=== PATIENT | female | born 2000 | race Caucasian/White ===

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

== ENCOUNTER 2023-06-20 07:24 | Emergency (ER) | payer MEDICAID ==
[~2023-06-20] VITALS: Ht 149.9 cm; Wt 43.2 kg
[~2023-06-20 07:24] MED LIST changes: +PROAIR HFA0.09 MG/AC IH; +SINGULAIR 110 MG/TAB PO; +TESSALON P100 MG/CAP PO; +ZYRTEC 10MG10 MG PO
[2023-06-20 07:36] VITALS: TEMP 98.2
[2023-06-20] MEDS ORDERED: Ondansetron 4 MG/2 ML VIAL IV ONE (09:00)
[2023-06-20] MEDS ORDERED: Ketorolac 15 MG/ML VIAL IV ONE (09:00)
[2023-06-20 09:19] LABS: BASO % 0.5 % (0.0-2.0); EOS # 0.2 K/mm3 (0.0-0.7); EOS % 3.9 % (0.0-4.0); GRAN # 2.1 K/mm3 (1.4-6.5); GRAN % 54.1 % (42.2-75.2); HEMATOCRIT 37.9 % (37.0-47.0); HEMOGLOBIN 12.3 g/dl (12.5-16.0); LYMPH # 1.4 K/mm3 (1.2-3.4); LYMPH % 35.2 % (20.0-51.0); MEAN CELL VOLUME 92 fl (80.0-100.0); MEAN CORPUSCULAR HEMOGLOBIN 30 pg (27-31); MEAN CORPUSCULAR HGB CONC 33 g/dl (33.0-37.0); MEAN PLATELET VOLUME 10.7 fl (7.4-10.4); MONO # 0.2 K/mm3 (0.1-0.6); PLATELET COUNT 192 K/mm3 (130-400); RED BLOOD COUNT 4.14 M/mm3 (4.10-5.30); REDCELL DISTRIBUTION WIDTH-CV 12.2 % (11.5-14.5)
[2023-06-20 09:20] LABS: COLLECTION METHOD CLEAN CATCH
[2023-06-20 09:35] LABS: URINE APPEARANCE CLEAR (CLEAR/HAZY); URINE BLOOD NEGATIVE (NEGATIVE); URINE COLOR YELLOW (YELLOW); URINE GLUCOSE NEGATIVE (NEGATIVE); URINE KETONE 2+ (NEGATIVE); URINE NITRATE NEGATIVE (NEGATIVE); URINE PROTEIN(semi-quant) TRACE (NEGATIVE)
[2023-06-20 09:38] LABS: ALBUMIN 3.7 g/dL (3.5-5.0); BILIRUBIN,TOTAL 0.7 mg/dL (0.2-1.2); CALCIUM 9.1 mg/dL (8.4-10.2); CREATININE, serum 0.73 mg/dL (0.57-1.11); POTASSIUM 3.7 mEq/L (3.5-4.5); TOTAL PROTEIN 6.9 g/dl (6.2-8.1)
[2023-06-20] MEDS ORDERED: Iohexol 300 - 100 ML VIAL IV ONE (10:36)
[2023-06-20] MEDS ORDERED: NS 100 ML IV SCH (10:37)
[2023-06-20 11:43] VITALS: BP 112/70; PULSE 76
== END 2023-06-20 11:44 | disposition home or self-care (01) ==
LOC: COL.ER 07:24
PROVIDERS: Emergency Medicine
DX: N39.0 Urinary tract infection, site not specified (principal); N20.0 Calculus of kidney
CPT/HCPCS: J1885; J2405; Q9967

== ENCOUNTER 2023-07-30 21:26 | Emergency (ER) | payer SELFPAY ==
[~2023-07-30] VITALS: Ht 149.9 cm; Wt 43.2 kg
[2023-07-30 21:38] VITALS: TEMP 98.3
[2023-07-30 21:49] LABS: COLLECTION METHOD CLEAN CATCH
[2023-07-30 21:57] LABS: URINE APPEARANCE TURBID (CLEAR/HAZY); URINE BLOOD 2+ (NEGATIVE); URINE COLOR RED (YELLOW); URINE GLUCOSE NEGATIVE (NEGATIVE); URINE KETONE 1+ (NEGATIVE); URINE NITRATE POSITIVE (NEGATIVE); URINE PROTEIN(semi-quant) 2+ (NEGATIVE); URINE UROBILINOGEN 0.2 E.U/dL (0.2-1.0)
[2023-07-30 22:06] LABS: URINE RBC >50 /hpf (0-2); URINE WBC >50 /hpf (0-2)
[2023-07-30 22:07] LABS: URINE BACTERIA MODERATE /hpf (NONE SEEN)
[2023-07-30] MEDS ORDERED: Ondansetron 4 MG/2 ML VIAL IV ONE (22:15)
[2023-07-30] MEDS ORDERED: Morphine 4 MG/ML VIAL IV ONE ×2 (22:15→23:45)
[2023-07-30] MEDS ORDERED: LR 1,000 ML IV ONE (22:15)
[2023-07-30] MEDS ORDERED: cefTRIAXone 1 G in Water For Injection,Sterile 10 ML IV ONE (22:15)
[2023-07-30 22:36] LABS: BASO % 0.3 % (0.0-2.0); EOS # 0.1 K/mm3 (0.0-0.7); GRAN # 9.8 K/mm3 (1.4-6.5); GRAN % 83.2 % (42.2-75.2); HEMATOCRIT 40.6 % (37.0-47.0); HEMOGLOBIN 13.4 g/dl (12.5-16.0); LYMPH # 1.2 K/mm3 (1.2-3.4); LYMPH % 10.4 % (20.0-51.0); MEAN CELL VOLUME 91 fl (80.0-100.0); MEAN CORPUSCULAR HEMOGLOBIN 30 pg (27-31); MEAN CORPUSCULAR HGB CONC 33 g/dl (33.0-37.0); MEAN PLATELET VOLUME 11.2 fl (7.4-10.4); MONO # 0.6 K/mm3 (0.1-0.6); MONO % 4.8 % (1.7-9.3); PLATELET COUNT 215 K/mm3 (130-400); RED BLOOD COUNT 4.47 M/mm3 (4.10-5.30); REDCELL DISTRIBUTION WIDTH-CV 11.9 % (11.5-14.5)
[2023-07-30] MEDS ORDERED: CEFTIN 250250 MG/TAB PO (23:10)
[2023-07-30 23:38] LABS: ALANINE AMINOTRANSFERASE 7 U/L (0-55); ALBUMIN 3.5 g/dL (3.5-5.0); ALKALINE PHOSPHATASE 56 U/L (40-150); ANION GAP 10 mmol/L (7-16); AST,SGOT 15 U/L (5-34); BILIRUBIN,TOTAL 0.5 mg/dL (0.2-1.2); CALCIUM 9.5 mg/dL (8.4-10.2); CHLORIDE 106 mEq/L (98-107); CREATININE, serum 0.74 mg/dL (0.57-1.11); GLUCOSE 83 mg/dL (70-99); LIPASE 8 U/L (8-78); POTASSIUM 3.7 mEq/L (3.5-4.5); SODIUM 139 mEq/L (136-145); TOTAL PROTEIN 6.2 g/dl (6.2-8.1)
[2023-07-30 23:42] LABS: C-REACTIVE PROTEIN < 0.02 mg/dL (0.00-0.50)
[2023-07-30 23:43] LABS: BLOOD UREA NITROGEN 11 mg/dL (7-19)
[2023-07-31] MEDS ORDERED: PYRIDIUM200 M1 PO (02:27)
[2023-07-31] MEDS ORDERED: Home HYDROcodone/Acetaminophen 5/325 MG #4 TABS/PACK PO ONE (02:30)
[2023-07-31 02:40] VITALS: BP 110/78; PULSE 68
== END 2023-07-31 02:40 | disposition home or self-care (01) ==
LOC: COL.ER 21:26
PROVIDERS: Family Medicine
DX: N30.91 Cystitis, unspecified with hematuria (principal)
CPT/HCPCS: J0696; J2270; J2405; J7120